=== PATIENT | female | born 1965 | race Two or more races ===

== ENCOUNTER → 2024-10-01 | Outpatient (CLI) | payer OTHER, SELFPAY ==
--- NOTE | 2024-10-01 10:00 | XR_ITS ---
Examination: Screening digital mammography, bilateral Computer aided detection 3-D breast Tomosynthesis, bilateral Date and time of exam: October 01, 2024 1005 hours Compared to mammograms dating to October 28, 2011 Indication: Screening Technique: Nonmagnified MLO, CC views of the breasts to been obtained, reconstructed from 3-D Tomosynthesis images. R2 computer aided detection program utilized for evaluation of suspicious masses and/or abnormal calcifications. 3-D Tomosynthesis images obtained. Findings: Scattered areas of fibroglandular density. Benign calcifications. No interval suspicious masses Impression: BI-RADS category II: Benign Findings. Recommend 1 year follow-up mammogram.
[2024-10-01 11:00] LABS: Basophils # (Auto) 0.1 Thou/mm3 (0.0-0.2); Basophils % (Auto) 1 % (0-2.5); Eosinophils # (Auto) 0.1 Thou/mm3 (0.0-0.5); Eosinophils % (Auto) 2 % (0-10); Hematocrit 37.8 % (36.0-46.0); Hemoglobin 12.6 g/dL (12.0-16.0); Immature Granulocytes % (Auto) 0 % (0-0); Immature Granulocytes Auto 0.01 Thou/mm3 (0.00-0.00); Lymphocytes # (Auto) 1.8 Thou/mm3 (1.0-4.8); Lymphocytes % (Auto) 30 % (10-50); Mean Corpuscular HGB Conc 33.3 g/dl (31.0-37.0); Mean Corpuscular Hemoglobin 28.8 pg (25.0-35.0); Mean Corpuscular Volume 87 fL (80-100); Monocytes # (Auto) 0.3 Thou/mm3 (0.0-0.8); Monocytes % (Auto) 6 % (0-12); Neutrophils # (Auto) 3.7 Thou/mm3 (1.8-7.7); Neutrophils % (Auto) 62 % (37-80); Nucleated Red Blood Cell % 0 /100 WBC (0); Platelet Count 293 Thou/mm3 (140-440); RDW Standard Deviation 44.3 fL (36.4-46.3); Red Blood Count 4.37 Miln/mm3 (4.00-5.20)
[2024-10-01 11:08] LABS: Iron 110 mcg/dL (50-170)
[2024-10-01 11:10] LABS: Glucose Estimated Average 143 mg/dL (80-131); Hemoglobin A1C 6.6 % Hgb (4.8-6.0)
[2024-10-01 11:18] LABS: Folate 16.71 ng/mL (>5.38); Vitamin B12 499 pg/mL (211-911); Vitamin D 25 Hydroxy Total 49.1 ng/mL (7.3-40.2)
[2024-10-01 11:27] LABS: Alanine Aminotransferase 11 U/L (10-49); Albumin, Serum 4.4 gm/dL (3.5-5.0); Alkaline Phosphatase 102 U/L (46-116); Anion Gap 7 (7-16); Aspartate Amino Transferase 22 U/L (0-34); BUN/Creatinine Ratio 26 Ratio (12-20); Bilirubin,Total 0.6 mg/dL (0.3-1.2); Blood Urea Nitrogen 18 mg/dL (9-23); Calcium 9.3 mg/dL (8.3-10.6); Calcium (Corrected) 9.3 mg/dL (8.5-10.1); Cardiac Risk Estimate 2.9 RATIO (3.7-5.6); Chloride 106 mMol/L (98-107); Cholesterol 259 mg/dL (132-200); Creatinine (Component) 0.7 mg/dL (0.6-1.3); Free T4 (Free Thyroxine) 1.04 ng/dL (0.89-1.76); Globulin 2.2 gm/dL (2.3-3.5); Glucose 196 mg/dL (74-106); HDL Cholesterol 88 mg/dL (40-60); LDL Cholesterol,Calculated 160 mg/dL (0-130); Osmolality,Calculated 284 (275-295); Potassium 4.2 mMol/L (3.4-5.1); Sodium 139 mMol/L (136-145); Thyroid Stimulating Hormone 1.19 uIU/mL (0.55-4.78); Total Protein 6.6 gm/dL (5.7-8.2); Triglycerides 56 mg/dL (30-150); eGFR > 60 See Note
== END | disposition home or self-care (01) ==
LOC: CDIM 10:00 → COPL 10:18
PROVIDERS: Referring Provider Internal Medicine; Visit Provider Radiology Diagnostic Radiology
DX: Z12.31 Encounter for screening mammogram for malignant neoplasm of breast (principal); R92.323 Mammographic fibroglandular density, bilateral breasts; E78.00 Pure hypercholesterolemia, unspecified; E10.42 Type 1 diabetes mellitus with diabetic polyneuropathy; E55.9 Vitamin D deficiency, unspecified; E03.9 Hypothyroidism, unspecified
CPT/HCPCS: 36415; 77063; 77067; 80053; 80061; 82306; 82607; 82746; 83036; 83540; 84439; 84443; 85025

== ENCOUNTER → 2025-05-09 | Outpatient (CLI) | payer OTHER, BC, SELFPAY ==
[2025-05-09 11:46] LABS: Glucose Estimated Average 160 mg/dL (80-131); Hemoglobin A1C 7.2 % Hgb (4.8-6.0)
[2025-05-13 06:23] LABS: Fecal Globin Result NOT DETECTED (NOT DETECTED)
== END | disposition home or self-care (01) ==
PROVIDERS: PCP Internal Medicine; Referring Provider Internal Medicine; Visit Provider Internal Medicine
DX: E11.9 Type 2 diabetes mellitus without complications (principal)
CPT/HCPCS: 36415; 82274; 83036; G0328

== ENCOUNTER → 2025-06-07 | Outpatient (CLI) | payer OTHER, SELFPAY ==
[2025-06-07 11:47] LABS: Basophils # (Auto) 0.1 Thou/mm3 (0.0-0.2); Basophils % (Auto) 1 % (0-2.5); Eosinophils # (Auto) 0.2 Thou/mm3 (0.0-0.5); Eosinophils % (Auto) 2 % (0-10); Hematocrit 37.7 % (36.0-46.0); Hemoglobin 12.6 g/dL (12.0-16.0); Immature Granulocytes Auto 0.02 Thou/mm3 (0.00-0.00); Lymphocytes # (Auto) 2.1 Thou/mm3 (1.0-4.8); Lymphocytes % (Auto) 30 % (10-50); Mean Corpuscular HGB Conc 33.4 g/dl (31.0-37.0); Mean Corpuscular Hemoglobin 29.0 pg (25.0-35.0); Mean Corpuscular Volume 87 fL (80-100); Monocytes # (Auto) 0.5 Thou/mm3 (0.0-0.8); Monocytes % (Auto) 8 % (0-12); Neutrophils # (Auto) 4.0 Thou/mm3 (1.8-7.7); Neutrophils % (Auto) 58 % (37-80); Nucleated Red Blood Cell # 0.00 Thou/mm3 (0.00-0.00); Nucleated Red Blood Cell % 0 /100 WBC (0); Platelet Count 338 Thou/mm3 (140-440); RDW Standard Deviation 45.0 fL (36.4-46.3); Red Blood Count 4.34 Miln/mm3 (4.00-5.20); White Blood Count 6.8 Thou/mm3 (3.6-11.0)
[2025-06-07 12:10] LABS: Alanine Aminotransferase 126 U/L (10-49); Albumin, Serum 4.2 gm/dL (3.5-5.0); Albumin/Globulin Ratio 1.9 (1.2-2.2); Alkaline Phosphatase 405 U/L (46-116); Anion Gap 14 (7-16); Aspartate Amino Transferase 84 U/L (0-34); BUN/Creatinine Ratio 27 Ratio (12-20); Bilirubin,Total 0.6 mg/dL (0.3-1.2); Blood Urea Nitrogen 19 mg/dL (9-23); Calcium 9.7 mg/dL (8.3-10.6); Calcium (Corrected) 9.7 mg/dL (8.5-10.1); Carbon Dioxide 26.2 mMol/L (20.0-31.0); Cardiac Risk Estimate 2.6 RATIO (3.7-5.6); Chloride 105 mMol/L (98-107); Cholesterol 222 mg/dL (132-200); Creatinine (Component) 0.7 mg/dL (0.6-1.3); Free T4 (Free Thyroxine) 1.15 ng/dL (0.89-1.76); Globulin 2.2 gm/dL (2.3-3.5); Glucose 100 mg/dL (74-106); HDL Cholesterol 87 mg/dL (40-60); LDL Cholesterol,Calculated 123 mg/dL (0-130); Osmolality,Calculated 290 (275-295); Potassium 3.9 mMol/L (3.4-5.1); Sodium 145 mMol/L (136-145); Thyroid Stimulating Hormone 1.39 uIU/mL (0.55-4.78); Total Protein 6.4 gm/dL (5.7-8.2); Triglycerides 59 mg/dL (30-150); eGFR > 60 See Note
[2025-06-07 12:22] LABS: Folate > 24.00 ng/mL (>5.38); Vitamin B12 671 pg/mL (211-911); Vitamin D 25 Hydroxy Total 57.0 ng/mL (7.3-40.2)
[2025-06-07 12:40] LABS: Glucose Estimated Average 143 mg/dL (80-131); Hemoglobin A1C 6.6 % Hgb (4.8-6.0)
[2025-06-07 13:31] LABS: Creatinine MALB Rnd Ur 210 mg/dL (30-125); Microalbumin Creat Ratio 2 mg/gCrea (<30); Microalbumin, Random Urine 5 mg/L (0-300)
== END | disposition home or self-care (01) ==
PROVIDERS: PCP Internal Medicine; Referring Provider Internal Medicine; Visit Provider Internal Medicine
DX: I11.0 Hypertensive heart disease with heart failure (principal); E11.9 Type 2 diabetes mellitus without complications; E55.9 Vitamin D deficiency, unspecified; E78.2 Mixed hyperlipidemia; E03.9 Hypothyroidism, unspecified
CPT/HCPCS: 36415; 80053; 80061; 82043; 82306; 82570; 82607; 82746; 83036; 84439; 84443; 85025

== ENCOUNTER → 2025-07-05 | Outpatient (CLI) | payer OTHER, BC, SELFPAY ==
--- NOTE | 2025-07-05 09:30 | XR_ITS ---
Examination: Abdomen sonogram, complete Date and time of exam: July 05, 2025, 0938 hours INDICATIONS: Epigastric pain beginning 2 months ago. Technique: Multiple real-time grayscale transabdominal sonographic images of the abdomen have been obtained. Findings: Normal gallbladder Normal common bile duct 0.4 cm Pancreatic head 2.6 cm possible edema around the pancreatic head Aorta not enlarged Liver 12.3 cm Normal hepatopedal portal venous flow Patent IVC Right kidney 8.1 cm cortex 0.9 cm Left kidney 12.0 cm cortex 2.0 cm Moderate renal parenchymal scar formation Spleen 8.7 cm IMPRESSION: Suspicious for pancreatitis, consider CT scan abdomen postcontrast follow-up as clinically warranted Small right kidney with renal cortical thinning Moderate bilateral renal parenchymal scar formation
== END | disposition home or self-care (01) ==
PROVIDERS: PCP Internal Medicine; Referring Provider Internal Medicine; Visit Provider Internal Medicine
DX: N28.89 Other specified disorders of kidney and ureter (principal)
CPT/HCPCS: 76700

== ENCOUNTER → 2025-07-14 | Outpatient (CLI) | payer OTHER, BC, SELFPAY ==
[2025-07-14 11:46] LABS: Alanine Aminotransferase 45 U/L (10-49); Albumin, Serum 4.5 gm/dL (3.5-5.0); Alkaline Phosphatase 199 U/L (46-116); Anion Gap 13 (7-16); Aspartate Amino Transferase 36 U/L (0-34); BUN/Creatinine Ratio 23 Ratio (12-20); Bilirubin,Direct 0.1 mg/dL (0.0-0.3); Bilirubin,Total 0.6 mg/dL (0.3-1.2); Blood Urea Nitrogen 18 mg/dL (9-23); Calcium 9.4 mg/dL (8.3-10.6); Carbon Dioxide 26.4 mMol/L (20.0-31.0); Chloride 104 mMol/L (98-107); Creatinine (Component) 0.8 mg/dL (0.6-1.3); Glucose 200 mg/dL (74-106); Osmolality,Calculated 292 (275-295); Phosphorous 3.3 mg/dL (2.4-5.1); Potassium 3.4 mMol/L (3.4-5.1); Sodium 143 mMol/L (136-145); Total Protein 7.0 gm/dL (5.7-8.2); eGFR > 60 See Note
== END | disposition home or self-care (01) ==
LOC: COPL 10:43
PROVIDERS: PCP Internal Medicine; Referring Provider Internal Medicine; Visit Provider Internal Medicine
DX: I11.0 Hypertensive heart disease with heart failure (principal); E11.9 Type 2 diabetes mellitus without complications
CPT/HCPCS: 36415; 80048; 80069; 80076; 84100

== ENCOUNTER → 2025-08-25 | Outpatient (CLI) | payer OTHER, BC, SELFPAY ==
[2025-08-25 12:45] LABS: Albumin, Serum 4.6 gm/dL (3.5-5.0); Anion Gap 7 (7-16); BUN/Creatinine Ratio 19 Ratio (12-20); Blood Urea Nitrogen 17 mg/dL (9-23); Calcium 9.3 mg/dL (8.3-10.6); Calcium (Corrected) 9.3 mg/dL (8.5-10.1); Carbon Dioxide 27.8 mMol/L (20.0-31.0); Chloride 108 mMol/L (98-107); Creatinine (Component) 0.9 mg/dL (0.6-1.3); Glucose 207 mg/dL (74-106); Osmolality,Calculated 292 (275-295); Phosphorous 2.7 mg/dL (2.4-5.1); Potassium 4.9 mMol/L (3.4-5.1); Sodium 143 mMol/L (136-145); eGFR > 60 See Note
== END | disposition home or self-care (01) ==
LOC: COPL 11:19
PROVIDERS: PCP Internal Medicine; Referring Provider Internal Medicine; Visit Provider Internal Medicine
DX: Z00.00 Encounter for general adult medical examination without abnormal findings (principal)
CPT/HCPCS: 36415; 80069

== ENCOUNTER → 2025-09-01 | Outpatient (CLI) | payer OTHER, BC, SELFPAY ==
--- NOTE | 2025-09-01 13:00 | XR_ITS ---
Examination: CT abdomen with intravenous contrast. Coronal 2-D reconstructions. Sagittal 2-D reconstructions. Date and time of exam: September 01, 2025, 1317 hours INDICATIONS: Epigastric pain upper abdominal pain beginning 5 months ago CTDI: vol (mGy): 7.92 DLP: (mGycm): 280 Technique: Axial images of the abdomen have been obtained, 3 mm slice thickness, 60 cc Isovue 370 2-D sagittal coronal reconstructions Low dose protocols were performed. One or more of the following dose reduction techniques were used; automated exposure control, adjustment of the mA and/or KV according to patient size, use of iterative reconstruction technique. Findings: No focal liver or splenic lesions No gallstones Mild edema around the head and body the pancreas No renal or ureteral calculi, no hydronephrosis Aortic calcification no aneurysmal dilatation Normal appendix No bowel obstruction IMPRESSION: Mild acute pancreatitis, no pseudocyst
== END | disposition home or self-care (01) ==
PROVIDERS: PCP Internal Medicine; Referring Provider Internal Medicine; Visit Provider Internal Medicine
DX: K85.80 Other acute pancreatitis without necrosis or infection (principal)
CPT/HCPCS: 74160; A4649; Q9967

== ENCOUNTER → 2025-09-28 | Outpatient (CLI) | payer OTHER, BC, SELFPAY ==
[2025-09-28 12:53] LABS: Misc Send Out* See Sep Rpt
[2025-09-28 13:37] LABS: Basophils # (Auto) 0.1 Thou/mm3 (0.0-0.2); Basophils % (Auto) 1 % (0-2.5); Eosinophils # (Auto) 0.1 Thou/mm3 (0.0-0.5); Eosinophils % (Auto) 2 % (0-10); Hematocrit 39.8 % (36.0-46.0); Hemoglobin 13.0 g/dL (12.0-16.0); Immature Granulocytes Auto 0.02 Thou/mm3 (0.00-0.00); Lymphocytes # (Auto) 2.1 Thou/mm3 (1.0-4.8); Lymphocytes % (Auto) 33 % (10-50); Mean Corpuscular HGB Conc 32.7 g/dl (31.0-37.0); Mean Corpuscular Hemoglobin 28.9 pg (25.0-35.0); Mean Corpuscular Volume 88 fL (80-100); Monocytes # (Auto) 0.4 Thou/mm3 (0.0-0.8); Monocytes % (Auto) 6 % (0-12); Neutrophils # (Auto) 3.6 Thou/mm3 (1.8-7.7); Neutrophils % (Auto) 57 % (37-80); Nucleated Red Blood Cell # 0.00 Thou/mm3 (0.00-0.00); Nucleated Red Blood Cell % 0 /100 WBC (0); Platelet Count 366 Thou/mm3 (140-440); RDW Standard Deviation 43.8 fL (36.4-46.3); Red Blood Count 4.50 Miln/mm3 (4.00-5.20); White Blood Count 6.3 Thou/mm3 (3.6-11.0)
[2025-09-28 13:51] LABS: Glucose Estimated Average 143 mg/dL (80-131); Hemoglobin A1C 6.6 % Hgb (4.8-6.0)
[2025-09-28 14:15] LABS: Alanine Aminotransferase 17 U/L (10-49); Albumin, Serum 4.6 gm/dL (3.5-5.0); Albumin/Globulin Ratio 1.6 (1.2-2.2); Alkaline Phosphatase 110 U/L (46-116); Anion Gap 13 (7-16); Aspartate Amino Transferase 22 U/L (0-34); BUN/Creatinine Ratio 24 Ratio (12-20); Bilirubin,Total 0.4 mg/dL (0.3-1.2); Blood Urea Nitrogen 17 mg/dL (9-23); Calcium 9.3 mg/dL (8.3-10.6); Calcium (Corrected) 9.3 mg/dL (8.5-10.1); Carbon Dioxide 24.8 mMol/L (20.0-31.0); Cardiac Risk Estimate 4.0 RATIO (3.7-5.6); Chloride 109 mMol/L (98-107); Cholesterol 287 mg/dL (132-200); Creatinine (Component) 0.7 mg/dL (0.6-1.3); Globulin 2.8 gm/dL (2.3-3.5); Glucose 119 mg/dL (74-106); HDL Cholesterol 72 mg/dL (40-60); LDL Cholesterol,Calculated 203 mg/dL (0-130); Osmolality,Calculated 294 (275-295); Potassium 3.8 mMol/L (3.4-5.1); Sodium 147 mMol/L (136-145); Total Protein 7.4 gm/dL (5.7-8.2); Triglycerides 59 mg/dL (30-150); eGFR > 60 See Note
[2025-09-28 17:49] LABS: Creatinine MALB Rnd Ur 246 mg/dL (30-125); Microalbumin Creat Ratio 4 mg/gCrea (<30); Microalbumin, Random Urine 10 mg/L (0-300)
[2025-10-05 08:45] LABS: C-Peptide* <0.10 ng/mL (0.80-3.85)
== END | disposition home or self-care (01) ==
LOC: COPL 12:30
PROVIDERS: PCP Internal Medicine; Referring Provider Internal Medicine Endocrinology, Diabetes & Metabolism; Visit Provider Internal Medicine Endocrinology, Diabetes & Metabolism
DX: E10.65 Type 1 diabetes mellitus with hyperglycemia (principal)
CPT/HCPCS: 36415; 80053; 80061; 82043; 82570; 83036; 84681; 85025; 86341